=== PATIENT | male | born 1930 | race Hispanic/Latino ===

== ENCOUNTER → 2019-01-01 | Outpatient (CLI) | payer OTHER ==
[~2019-01-01] MED LIST: CARB1TAB20 PO; DRON400T2 PO; FAMO40TA7 PO; ISOS60TA4 PO; LEVO100T12 PO; METO-391 PO; NITR0.4T SL; OMEP-50 PO; ONDA4TAB9 PO; RIVA15TA PO; SIMV10TA6 PO; SODI1TAB4 PO
== END | disposition home or self-care (01) ==
LOC: SHCH 13:38
PROVIDERS: ATTEND Internal Medicine Cardiovascular Disease
DX: I73.9 Peripheral vascular disease, unspecified (principal); I87.2 Venous insufficiency (chronic) (peripheral)
CPT/HCPCS: 93925; 93970